=== PATIENT | male | born 1960 | race Hispanic/Latino ===

== ENCOUNTER → 2017-08-14 | Outpatient (CLI) | payer SELFPAY | END | disposition home or self-care (01) | LOC: OIH 14:58 | PROVIDERS: ATTEND Internal Medicine | DX: Z13.6 Encounter for screening for cardiovascular disorders (principal) | CPT/HCPCS: 75571 ==

== ENCOUNTER → 2025-01-25 | Outpatient (CLI) | payer OTHER ==
--- NOTE | 2025-01-25 23:42 | HMCIMG ---
EXAM: CR LEFT FOOT, 3 VIEWS CLINICAL HISTORY: Left foot pain. COMPARISON: None provided TECHNIQUE: 3 views of the left foot. FINDINGS: Bones: Osteopenia. Inferior calcaneal spur is seen. Dorsal talar osteophyte. No fracture or subluxation. No sclerotic or destructive changes observed. Joints: Preservation of the joint space. Dorsal talar osteophyte is present. Soft tissues: Calcifications in region of dorsalis pedis, anterior tibial and posterior tibial arteries. Small detached osseous density in adjacent soft tissues - likely detached spur / soft tissue calcification - may represent plantar fasciitis. IMPRESSION: * Osteopenia. * Inferior calcaneal spurs with small osseous density in adjacent soft tissues, likely detached spur/soft tissue calcification - may represent plantar fasciitis. * Dorsal talar osteophyte. * Vascular calcifications. /[place]
--- NOTE | 2025-01-25 23:43 | HMCIMG ---
EXAM: CR RIGHT FOOT, 3 VIEWS CLINICAL HISTORY: PAIN COMPARISON:None provided TECHNIQUE: 3 views of the right foot. FINDINGS: Bones: Osteopenia. Prominent posterior osseous projection from the talus, which may represent a Stieda process. Small inferior and posterior calcaneal spurs. No fracture or subluxation. No sclerotic or destructive changes observed Joints: Reduced space at the 1st metatarsophalangeal joint with osteophyte formation. Soft tissues: Focal calcification in the 1st web space, likely vascular calcification. Vascular calcifications in region of the anterior tibial artery (VERN) and posterior tibial artery (RADIOLOGY INTERVENTIONAL PHYSICIAN). Focal calcification in the region of the plantar fascia. IMPRESSION: * Osteoarthritis of the 1st metatarsophalangeal joint. * Osteopenia. * Small inferior and posterior calcaneal spurs with subtle calcification in region of plantar fascia. /[place]
== END | disposition home or self-care (01) ==
LOC: RAH 15:27
PROVIDERS: ATTEND Internal Medicine
DX: M19.071 Primary osteoarthritis, right ankle and foot (principal); M19.072 Primary osteoarthritis, left ankle and foot; M79.672 Pain in left foot; M79.671 Pain in right foot; M85.872 Other specified disorders of bone density and structure, left ankle and foot; M85.871 Other specified disorders of bone density and structure, right ankle and foot; M77.32 Calcaneal spur, left foot; M77.31 Calcaneal spur, right foot; M25.775 Osteophyte, left foot; M25.774 Osteophyte, right foot
CPT/HCPCS: 73630